=== PATIENT | male | born 1995 | race African-American/Black ===

== ENCOUNTER 2021-04-26 11:58 | Emergency (ER) | payer SELFPAY ==
--- NOTE | 2021-04-26 12:15 | EDM.PDOC ---
ED HPI GENERAL MEDICAL PROBLEM - General Stated Complaint: TOOTH PAIN ON RIGHT SIDE Time Seen by Provider: 04/26/21 12:15 Source of Information: Reports: Patient History Limitations: Reports: No Limitations - Related Data Allergies Allergy/AdvReac Type Severity Reaction Status Date / Time No Known Allergies Allergy Verified 11/23/19 11:[address] [facility] Home Meds: Home Meds hydrOXYzine HCL [Hydroxyzine HCl] 25 mg PO DAILY 05/26/19 [History] Orphenadrine [Norflex] 100 mg PO BID PRN #14 tab 11/23/19 [Rx] predniSONE 20 mg PO ASDIRECTED #15 tab 11/23/19 [Rx] Past Medical History Psychiatric History: Reports: Anxiety Social & Family History - Family History Family Medical History: No Pertinent Family History - Caffeine Use Caffeine Use: Reports: Coffee, Energy Drinks, Soda, Tea
--- NOTE | 2021-04-26 12:20 | EDM.PDOC ---
ED HPI GENERAL MEDICAL PROBLEM - General Chief Complaint: ENT Problem Stated Complaint: TOOTH PAIN ON RIGHT SIDE Time Seen by Provider: 04/26/21 12:15 Source of Information: Reports: Patient History Limitations: Reports: No Limitations - History of Present Illness INITIAL COMMENTS - FREE TEXT/NARRATIVE: HISTORY AND PHYSICAL: History of present illness: Patient is a 25-year-old male who complains of dental pain on left upper jaw for over 1 week. The patient states that he has had this pain previously with an infected tooth. Prior to 1 week ago the patient has been otherwise healthy. Patient denies any fever, chills, headache, change in vision, syncope or near syncope. Denies any chest pain, back pain, shortness of breath or cough. Denies any abdominal pain, nausea, vomiting, diarrhea, constipation or dysuria. Has not noted any blood in urine or stool. Patient has been eating and drinking appropriately. Review of systems: As per history of present illness and below otherwise all systems reviewed and negative. Past medical history: As per history of present illness and as reviewed below otherwise noncontributory. Surgical history: As per history of present illness and as reviewed below otherwise noncontributory. Social history: See social history for further information Family history: As per history of present illness and as reviewed below otherwise noncontributory. Physical exam: General: Well developed and well nourished. Alert and orientated x 3. Nontoxic in appearance and in no acute distress. Vital signs are stable and have been reviewed by me. Nursing notes were reviewed. HEENT: Atraumatic, normocephalic, pupils equal and reactive bilaterally, negative for conjunctival pallor or scleral icterus, mucous membranes moist, TMs normal bilaterally, throat clear, neck supple, nontender, trachea midline. Tooth #15 carious with erythema noted on gums. No abscess noted no drooling or trismus noted. No meningeal signs. No hot potato voice noted. Lungs: Clear to auscultation bilaterally. No wheezes, rales, or rhonchi. Chest nontender. Normal work of breathing, no accessory muscles used. Heart: S1S2, regular rate and rhythm without overt murmur, gallops, or rubs. No JVD. No peripheral edema Abdomen: Soft, nondistended, nontender. Normoactive bowel sounds. Negative for masses or costovertebral tenderness. Skin: Intact, warm, dry. No lesions or rashes noted. Hematologic: No petechiae or purpra. Mucosa appropriate color and normal nail bed color and refill. Extremities: Atraumatic, moves all extremities per self without difficulty or deficits, negative for cords or calf pain. Neurovascular unremarkable. Neuro: Awake, alert, oriented. Cranial nerves II through XII unremarkable. Cerebellum unremarkable. Motor and sensory unremarkable throughout. Exam nonfocal. Psychiatric: Mood and affect are appropriate. Normal thought process. Answering questions appropriately. Notes: *This patient was seen and evaluated during the 2019 SARS-CoV-2 novel coronavirus pandemic period. Community viral transmission is ongoing at time of this encounter and the emergency department is operating under pandemic response procedures. As stated above the patient is a 25-year-old female with over a week of dental pain. Upon examination tooth #15 is carious and with erythema on the gum. I will treat the patient with an IM injection of Toradol a dental ball. I will send the patient home on penicillin 500 mg twice daily for 10 days. I have talked with the patient about today's findings, in addition to providing specific details for plan of care. Reassessment at the time of disposition demonstrates that the patient is in no acute distress. The patient is stable for discharge, counseling was provided and we discussed in great detail signs and symptoms that would prompt them to return to the Emergency Department. Medication, follow up and supportive care measures were reviewed and discussed. Voices understanding and is agreeable to plan of care. Denies any further questions or concerns at this time. Therapeutics: Toradol 60 mg IM and dental ball Prescription: Penicillin 500 mg twice daily x10 days Impression: Dental venice Plan: 1. You were evaluated today on an emergent basis. Your right upper tooth pain was evaluated and found to be infected. I have prescribed penicillin 500 mg twice a day for 10 days. You will be giving that out of the [facility] med through [facility] [place]. And for your pain we have given you a dental ball to help with numbing. I am unable to give you a shot of Toradol as you have taken in excess of of your Motrin at home. For home use only take Motrin 600 mg every 8 hours and you can take Tylenol 650 every 4 hours. Do not exceed these doses. Keep your dental appointment on Thursday. 2. You can alternate Tylenol and ibuprofen as needed for pain and fever management. 3. We encourage you to follow up with your primary care provider and/or recommended specialist in the next few days for re-evaluation and further care/management. 4. If your symptoms should worsen, new symptoms develop or any of the signs and symptoms we discussed should arise please return to the emergency room or call 911 (if needed). Definitive disposition and diagnosis as appropriate pending reevaluation and review of above. right upper tooth Pain Score (Numeric/FACES): 10 - Related Data Allergies Allergy/AdvReac Type Severity Reaction Status Date / Time No Known Allergies Allergy Verified 11/23/19 11:50 [facility] Home Meds: Home Meds . [No Known Home Meds] 04/26/21 [History] Past Medical History Psychiatric History: Reports: Anxiety Social & Family History - Family History Family Medical History: No Pertinent Family History - Caffeine Use Caffeine Use: Reports: Coffee, Energy Drinks, Soda, Tea ED ROS ENT - Review of Systems Review Of Systems: Comprehensive ROS is negative, except as noted in HPI. ED EXAM, ENT - Physical Exam Exam: See Below (See dictation) Course - Vital Signs Last Recorded V/S: Last Vital Signs Temp 97.7 F 04/26/21 12:25 Pulse 69 04/26/21 13:00 Resp 16 04/26/21 13:00 BP 124/82 04/26/21 13:00 Pulse Ox 98 04/26/21 13:00 - Orders/Labs/Meds Meds: Medications Discontinued Medications Generic Name Dose Route Start Last Admin Trade Name Freq PRN Reason Stop Dose Admin Benzocaine 2 each 04/26/21 12:26 04/26/21 12:36 Benzocaine 20% Topical [place] Ud MUCMEM 04/26/21 12:27 2 each ONETIME ONE Administration Ketorolac Tromethamine 60 mg 04/26/21 12:42 04/26/21 12:53 Ketorolac 60 Mg/2 Ml Sdv IM 04/26/21 12:43 60 mg ONETIME ONE Administration Lidocaine HCl 15 ml 04/26/21 12:26 04/26/21 12:36 Lidocaine 2% Viscous Solution 15 Ml Cup PO 04/26/21 12:27 15 ml ONETIME ONE Administration Departure - Departure Time of Disposition: 12:38 Disposition: Home, Self-Care 01 Condition: Good Clinical Impression: Dental caries - Discharge Information *PRESCRIPTION DRUG MONITORING PROGRAM REVIEWED*: Not Applicable *COPY OF PRESCRIPTION DRUG MONITORING REPORT IN PATIENT MOISES: Not Applicable Instructions: Diet and Dental Disease Referrals: PCP,None [Primary Care Provider] - Forms: ED Department Discharge Additional Instructions: The following information is given to patients seen in the emergency department who are being discharged to home. This information is to outline your options for follow-up care. We provide all patients seen in our emergency department with a follow-up referral. The need for follow-up, as well as the timing and circumstances, are variable depending upon the specifics of your emergency department visit. If you don't have a primary care physician on staff, we will provide you with a referral. We always advise you to contact your personal physician following an emergency department visit to inform them of the circumstance of the visit and for follow-up with them and/or the need for any referrals to a consulting specialist. The emergency department will also refer you to a specialist when appropriate. This referral assures that you have the opportunity for follow-up care with a specialist. All of these measure are taken in an effort to provide you with optimal care, which includes your follow-up. Under all circumstances we always encourage you to contact your private physician who remains a resource for coordinating your care. When calling for fo llow-up care, please make the office aware that this follow-up is from your recent emergency room visit. If for any reason you are refused follow-up, please contact the [facility] Emergency Department at and asked to speak to the emergency department charge nurse. [facility] [address] [place] [address] [id number] [address] [address] Plan: 1. You were evaluated today on an emergent basis. Your right upper tooth pain was evaluated and found to be infected. I have prescribed penicillin 500 mg twice a day for 10 days. You will be giving that out of the [facility] med through [facility] [place]. And for your pain we have given you a dental ball to help with numbing. I am unable to give you a shot of Toradol as you have taken in excess of of your Motrin at home. For home use only take Motrin 600 mg every 8 hours and you can take Tylenol 650 every 4 hours. Do not exceed these doses. Keep your dental appointment on Thursday. 2. You can alternate Tylenol and ibuprofen as needed for pain and fever management. 3. We encourage you to follow up with your primary care provider and/or recommended specialist in the next few days for re-evaluation and further care/management. 4. If your symptoms should worsen, new symptoms develop or any of the signs and symptoms we discussed should arise please return to the emergency room or call 911 (if needed). Sepsis Event Note (ED) - Focused Exam Vital Signs: Vital Signs Temp Pulse Resp BP Pulse Ox 04/26/21 13:00 69 16 124/82 98 04/26/21 12:25 97.7 F 75 18 128/85 98
[2021-04-26] MEDS ORDERED: Lidocaine 2% Viscous Solution 15 ML Cup PO ONE (12:26)
[2021-04-26] MEDS ORDERED: Benzocaine 20% Topical Spray UD MUCMEM ONE (12:26)
[2021-04-26] MEDS ORDERED: Ketorolac 60 MG/2 ML SDV IM ONE (12:42)
== END 2021-04-26 13:02 | disposition home or self-care (01) ==
LOC: MW.ED 11:58
DX: K02.9 Dental caries, unspecified (principal)
CPT/HCPCS: 96372; 99282; A9270; J1885

== ENCOUNTER 2022-04-29 20:11 | Emergency (ER) | payer MEDICAID | END 2022-04-29 21:49 | disposition left against medical advice (07) | LOC: MW.ED 20:11 | DX: Z53.21 Procedure and treatment not carried out due to patient leaving prior to being seen by health care provider (principal) ==

== ENCOUNTER 2023-04-06 00:51 | Emergency (ER) | payer MEDICAID ==
[2023-04-06] MEDS ORDERED: Lidocaine/Epineph/Tetracaine 3 ML Syringe ONE (00:57)
[2023-04-06] MEDS ORDERED: Lidocaine/Epineph/Tetracaine 3 ML Syringe TOP ONE (00:58)
[2023-04-06] MEDS ORDERED: Octyl 2-Cyanoacrylate 1 g/1 mL 1 APPLIC PEN TOP ONE (01:01)
== END 2023-04-06 01:24 | disposition home or self-care (01) ==
LOC: MW.ED 00:51
DX: S01.81XA Laceration without foreign body of other part of head, initial encounter (principal); Z86.16 Personal history of COVID-19; W22.8XXA Striking against or struck by other objects, initial encounter; Y92.148 Other place in prison as the place of occurrence of the external cause
CPT/HCPCS: 12011; 99283; A9270